=== PATIENT | male | born 1985 ===

== ENCOUNTER 2017-12-25 18:52 | Emergency (ER) | payer SELFPAY ==
--- NOTE | 2017-12-25 19:21 | UC ---
Elbow Pain - HPI Summary HPI Summary: Pt presents with left elbow injury. He tells me that yesterday he was carrying in a carton of bottled water and his left knee gave out (he has a hx of problems with this knee) and he fell onto his outstretched left hand - his left elbow "buckled". Had immediate pain. Today is still having pain, but no decreased ROM. Feels tingling from his medial elbow to his pinky with certain movements. - History of Current Complaint Chief Complaint: UCUpperExtremity Stated Complaint: ELBOW INJURY Time Seen by Provider: 12/25/17 19:20 Hx Obtained From: Patient Onset/Duration: Hours Severity Initially: Moderate Severity Currently: Moderate Pain Intensity: 8 Pain Scale Used: 0-10 Numeric Character: Dull, Stiffness, Burning Aggravating Factor(s): Movement, Twisting Alleviating Factor(s): Rest, Immobilization - Allergies/Home Medications Allergies/Adverse Reactions: Allergies Allergy/AdvReac Type Severity Reaction Status Date / Time amoxicillin Allergy Hives Verified 12/25/17 19:15 Home Medications: Home Medications Albuterol HFA INHALER* [Ventolin HFA Inhaler*] 12/25/17 [History] Ibuprofen [Advil] 200 mg PO 12/25/17 [History] Ibuprofen/Diphenhydramine Cit [Advil Pm Caplet] 12/25/17 [History] PMH/Surg Hx/FS Hx/Imm Hx Previously Healthy: Yes Respiratory History: Asthma - Surgical History Surgical History: None Surgery Procedure, Year, and Place: knee surgery 10 years ago - Family History Known Family History: Positive: Unknown - Social History Lives: With Family Alcohol Use: None Substance Use Type: Marijuana Smoking Status (MU): Current Every Day Smoker Review of Systems Constitutional: Negative Skin: Negative Respiratory: Negative Cardiovascular: Negative Neurovascular: Negative Musculoskeletal: Other: - Left elbow pain Neurological: Other - Burning left arm Psychological: Negative All Other Systems Reviewed And Are Negative: Yes Physical Exam - Summary Physical Exam Summary: GENERAL: NAD. WDWN. No pain distress. SKIN: No rashes, sores, ulcers, masses, lesions. NECK: Supple. Nontender. No lymphadenopathy. CHEST: CTAB. No r/r/w. No accessory muscle use. Breathing comfortably and in no distress. CV: RRR. Without m/r/g. Pulses intact radial and ulnar. MSK: TTP over left elbow medial epicondyle. Positive tinel sign ulnar nerve. Strength 5/5 including exhaust emissions inspector strength. No edema or obvious bony deformities. Left wrist is NTTP and FROM. NEURO: Alert. Sensations intact hand and all fingers. PSYCH: Age appropriate behavior. Triage Information Reviewed: Yes Vital Signs: Initial Vital Signs Temp 99.0 F 12/25/17 19:09 Pulse 95 12/25/17 19:09 Resp 16 12/25/17 19:09 BP 138/78 12/25/17 19:09 Pulse Ox 97 12/25/17 19:09 Elbow Pain Course/Dx - Course Course Of Treatment: XR: IMPRESSION: No fracture of the left elbow. RICE, VINCE wrap, sling, ibuprofen prn pain. F/u with ortho if symptoms worsen or persist >5 -7days - Differential Dx/Diagnosis Provider Diagnoses: Left elbow sprain Discharge - Discharge Plan Condition: Stable Disposition: HOME Patient Education Materials: Elbow Sprain (ED) Referrals: Colleen Wolf MD [Primary Care Provider] - Yogesh Lopez MD [Medical Doctor] - If Needed Additional Instructions: If you develop a fever, shortness of breath, chest pain, new or worsening symptoms - please call your PCP or go to the ED. Your blood pressure was high at todays visit. Please see your primary provider within 4 weeks for recheck and re-evaluation. 1) Rest, Ice, VINCE wrap, and use the sling for your elbow as needed over the next 3-5 days. 2) May take ibuprofen 600mg every 6-8hours as needed for pain 3) If your symptoms worsen or persist greater than 7 days - please call Orthopedics at the number below to schedule a follow up appointment.
--- NOTE | 2017-12-25 20:14 | RAD ---
Indication: Left elbow injury. 4 views of left elbow demonstrates no fracture. No bone or joint abnormality is noted. IMPRESSION: No fracture of the left elbow.
== END 2017-12-25 20:40 | disposition home or self-care (01) ==
LOC: UCEAST 18:52
DX: S53.402A Unspecified sprain of left elbow, initial encounter (principal); W18.30XA Fall on same level, unspecified, initial encounter; Y93.89 Activity, other specified; Y92.9 Unspecified place or not applicable; J45.909 Unspecified asthma, uncomplicated; Z88.1 Allergy status to other antibiotic agents; F17.200 Nicotine dependence, unspecified, uncomplicated
CPT/HCPCS: 99203; G0463

== ENCOUNTER 2019-07-18 15:42 | Emergency (ER) | payer OTHER ==
[2019-07-18 15:56] VITALS: BP 137/88
--- NOTE | 2019-07-18 16:33 | UC ---
Hand/Wrist HPI - HPI Summary HPI Summary: fell in the liz about 3 hours ago--full weight landed on outstretched right hand, ---impaled a stick in to proximal [place] aspect of right had--n,m,c intact right wrist and right palm painful to touch - History Of Current Complaint Chief Complaint: UCWounds Stated Complaint: STICK JABBED IN WRIST Time Seen by Provider: 07/18/19 16:24 Hx Obtained From: Patient ?: No Mechanism Of Injury: foosh and stick impailed right palm Onset/Duration: Sudden Onset, Lasting Hours - 3 Pain Intensity: 12 - pt refused pain medication Pain Scale Used: 0-10 Numeric Character Of Pain: Aching, Throbbing Aggravating Factor(s): Movement Alleviating Factor(s): Nothing Associated Signs And Symptoms: Positive: Swelling, Redness Related History: Dominant Hand Right - Allergies/Home Medications Allergies/Adverse Reactions: Allergies Allergy/AdvReac Type Severity Reaction Status Date / Time amoxicillin Allergy Hives Verified 07/18/19 15:56 PMH/Surg Hx/FS Hx/Imm Hx Previously Healthy: No Respiratory History: Asthma - mild intemittent - Surgical History Surgical History: None Surgery Procedure, Year, and Place: knee surgery 10 years ago - Family History Known Family History: Positive: Unknown - Social History Occupation: Employed Full-time Lives: With Family Alcohol Use: None Substance Use Type: Marijuana Smoking Status (MU): Current Every Day Smoker - Immunization History Most Recent Tetanus Shot: UTD Review of Systems All Other Systems Reviewed And Are Negative: Yes Skin: Positive: Other - pw right promimal palm Eyes: Positive: Negative ENT: Positive: Negative Respiratory: Positive: Negative Cardiovascular: Positive: Negative Gastrointestinal: Positive: Negative Genitourinary: Positive: Negative Motor: Positive: Decreased ROM - right wrist Musculoskeletal: Positive: Arthralgia - right wrist Neurological: Positive: Negative Psychological: Positive: Negative Is Patient Immunocompromised?: No Physical Exam Triage Information Reviewed: Yes Appearance: Well-Appearing, No Pain Distress, Well-Nourished Vital Signs: Initial Vital Signs Temp 98.9 F 07/18/19 15:51 Pulse 82 07/18/19 15:51 Resp 20 07/18/19 15:51 BP 137/88 07/18/19 15:51 Pulse Ox 98 07/18/19 15:51 Vital Signs Reviewed: Yes Eye Exam: Normal Eyes: Positive: Conjunctiva Clear ENT Exam: Normal ENT: Positive: Normal ENT inspection, Hearing grossly normal, Pharynx normal. Negative: Trismus, Muffled voice, Hoarse voice Neck exam: Normal Neck: Positive: Supple, Nontender, No Lymphadenopathy Respiratory Exam: Normal Respiratory: Positive: Chest non-tender, Lungs clear, Normal breath sounds, No respiratory distress, No accessory muscle use Cardiovascular Exam: Normal Cardiovascular: Positive: RRR, No Murmur, Pulses Normal, Brisk Capillary Refill Musculoskeletal Exam: Other Musculoskeletal: Positive: No Edema, Strength Limited @ - right hand, ROM Limited @ - right wrist Neurological Exam: Normal Neurological: Positive: Alert, Muscle Tone Normal Psychological Exam: Normal Skin: Positive: Other - pw right palm Diagnostics - Radiology No standard instances Radiology Interpretation Completed By: Radiologist - no fracture no radioopaque FB Hand/Wrist Course/Dx - Course Course Of Treatment: cockup splint, rice, follow with ortho. this week - Differential Dx/Diagnosis Provider Diagnosis: Puncture wound of hand, right, Right wrist sprain Discharge ED - Sign-Out/Discharge Documenting (check all that apply): Patient Departure All imaging exams completed and their final reports reviewed: Yes - Discharge Plan Condition: Stable Disposition: HOME Prescriptions: DOXYcycline CAP(*) [DOXYcycline 100MG CAP(*)] 100 mg PO BID #[id number] cap Patient Education Materials: Ibuprofen (By mouth), Puncture Wound (ED), Contusion in Adults (ED) Referrals: Tiesha Cartwright MD [Medical Doctor] - 4 Days - Billing Disposition and Condition Condition: STABLE Disposition: Home
[2019-07-18] MEDS ORDERED: DOXYcycline CAP(*) 100 MG PO ONE (16:46)
== END 2019-07-18 17:11 | disposition home or self-care (01) ==
LOC: UCEAST 15:42
DX: S61.431A Puncture wound without foreign body of right hand, initial encounter (principal); S63.501A Unspecified sprain of right wrist, initial encounter; W18.30XA Fall on same level, unspecified, initial encounter; W26.8XXA Contact with other sharp object(s), not elsewhere classified, initial encounter; Y93.89 Activity, other specified; Y92.821 Forest as the place of occurrence of the external cause; Z88.0 Allergy status to penicillin; F17.200 Nicotine dependence, unspecified, uncomplicated
CPT/HCPCS: 99213; A9270-GY; G0463